=== PATIENT | female | born 1980 | race Caucasian/White ===

== ENCOUNTER 2017-12-11 22:58 | Inpatient (IN) | payer OTHER ==
[~2017-12-11] VITALS: Ht 162.6 cm; Wt 68.0 kg
[2017-12-11 22:58] VITALS: BP_SYST 85
--- NOTE | 2017-12-11 22:58 | NUR ---
Patient to ER bed 4 to gown for evaluation. Side rails up. Report given to MEL MORELOS.
--- NOTE | 2017-12-11 22:59 | NUR ---
Note [place] in EDM - 12/12/17 at 1049 by SDEDEJ Patient AAOx3, normally ambulatory. Paramedics state patient had "2 episdoes of syncope" earlier this evening with C section that occurred approximately 1 week ago. BP at triage reassessed. Patient denies injury to head, neck, and back. Patient states she "cannot remember how long she lost consciousness". Patient denies any other complaints.
--- NOTE | 2017-12-11 22:59 | NUR ---
Patient AAOx3, normally ambulatory. Paramedics state patient had "2 episodes of syncope" earlier this evening with C section that occurred approximately 1 week ago. BP at triage reassessed. Patient denies injury to head, neck, and back. Patient states she "cannot remember how long she lost consciousness". Patient denies any other complaints.
--- NOTE | 2017-12-11 22:59 | NUR ---
ER Dr. Garrison at bedside examining patient.
--- NOTE | 2017-12-11 23:00 | NUR ---
# 18 gauge angiocath placed to right AC. Use of asceptic technique. Opsite placed over site. Blood return noted. Blood for lab drawn from site. Flushed with 10 cc of normal saline. No evidence of infiltration noted. Patient tolerated well.
[2017-12-11] MEDS ORDERED: NACL 0.9% 1,000 ML IV SCH (23:03)
[2017-12-11 23:29] LABS: BASOPHILS # (AUTO) 0.1 K/uL (0.0-0.2); BASOPHILS % (AUTO) 0.4 % (0.0-2.0); EOSINOPHILS # (AUTO) 0.2 K/uL (0.0-0.4); LYMPHOCYTES # (AUTO) 2.5 K/uL (1.0-5.5); LYMPHOCYTES % (AUTO) 13.8 % (20.5-51.5); MEAN CORPUSCULAR HEMOGLOBIN 23 pg (27-31); MEAN CORPUSCULAR HGB CONC 31 % (32-36); MEAN CORPUSCULAR VOLUME 76 fL (79.0-98.0); MONOCYTES # (AUTO) 1.3 K/uL (0.0-1.0); MONOCYTES % (AUTO) 7.3 % (1.7-9.3); NEUTROPHILS # (AUTO) 14.1 K/uL (1.8-7.7); NEUTROPHILS % (AUTO) 77.5 % (40.0-70.0); PLATELET COUNT (AUTO) 281 K/uL (130-430); RED BLOOD CELL COUNT(AUTO) 2.06 MIL/uL (4.2-6.2); RED CELL DISTRIBUTION WIDTH 18.7 % (9.0-15.0); WHITE BLOOD COUNT (AUTO) 18.2 K/uL (4.8-10.8)
[2017-12-11 23:31] LABS: HEMATOCRIT 15.6 % (36-48); HEMOGLOBIN 4.8 g/dL (12.0-16.0)
[2017-12-11 23:33] LABS: CREATININE 0.83 mg/dL (0.55-1.30); POTASSIUM 3.9 mmol/L (3.5-5.1)
[2017-12-11 23:36] LABS: INR 1.2 (0.8-1.2); PROTHROMBIN TIME 12.1 SECS (9.5-12.5)
[2017-12-11 23:38] LABS: ALBUMIN 2.2 g/dL (3.4-4.8); TOTAL BILIRUBIN 0.3 mg/dL (0.0-1.0)
[2017-12-12] VITALS (16 sets, daily range): BP systolic 86–118
[2017-12-12] MEDS ORDERED: DIPHENHYDRAMINE INJ 50 MG/ML VIAL IVP ONE (00:15)
[2017-12-12] MEDS ORDERED: NACL 0.9% 500 ML IV ONE (00:15)
[2017-12-12] MEDS ORDERED: ACETAMINOPHEN 325 MG TABLET PO ONE (00:15)
[2017-12-12] MEDS ORDERED: IBUPROFEN 800 MG TABLET PO PRN (00:15)
--- NOTE | 2017-12-12 00:20 | NUR ---
Blood from patient is also noted to center of the patient's bedsheet. ER MD was notified; no changes to current orders at this time.
--- NOTE | 2017-12-12 00:20 | NUR ---
Note [place] in EDM - 12/12/17 at 1056 by SDEDEJ Blood also noted to center [facility] for [facility]orney. GAURAV MAJOR notified, no changes to current orders at this time.
--- NOTE | 2017-12-12 00:20 | NUR ---
1 towel at patient's bedside moderately saturated with dark red blood. ER MD notified.
--- NOTE | 2017-12-12 00:25 | NUR ---
ADMIT NOTE Received pt from ER to the floor with a diagnosis of POST- VAGINAL BLEEDING. Admission process initiated. patient oriented to pain management, safety and call light-teach back done.
--- NOTE | 2017-12-12 00:29 | NUR ---
Patient will be admitted to care of Dr. Stanley. Admitted to tele unit. Will go to room 125 B. Belongings list completed. Summary report printed. Report given to MEL Cardoso at bedside.
--- NOTE | 2017-12-12 00:45 | NUR ---
Admission note Patient c/o pain. Patient is having vaginal bleeding. Changed james and linen. Waiting on Blood too be available from pharmacy per MD orders.. Patient AAOx4. Horizontal incision on lower ABD per of twin girls on Dec 04 2017. Bed in low position. Family at bedside.
[2017-12-12] MEDS ORDERED: NORETHINDRONE ACETATE 5 MG TABLET PO ONE (01:00)
--- NOTE | 2017-12-12 01:02 | NUR ---
Saturated 2 chucks Patient vaginal bleeding, saturated 2 chucks. Changed linens.
--- NOTE | 2017-12-12 01:10 | NUR ---
Paged dr. Stanley
--- NOTE | 2017-12-12 01:17 | NUR ---
Blood transfusion Patient started blood transfusion at 0117 am. Refused PO medications Ibuprofen and Tylenol. IV Benadryl given with patient tolerating well.
--- NOTE | 2017-12-12 01:20 | NUR ---
ARRIVAL TO ICU PT ARRIVED TO ICU ROOM 7. FAMILY AT BEDSIDE. PT IS ACTIVELY BLEEDING. LOWER ABDOMINAL PAIN. DR. MALONE IS PRESENT. 1ST BLOOD TRANSFUSION IS ONGOING, OPENED WIDE PER DR MALONE. NEW IV ACCESS IS STARTED IN LEFT FOREARM 20G, IN FIRST ATTEMPT, TOLERATED WELL.
[2017-12-12] MEDS ORDERED: LR 1,000 ML IV SCH (01:30)
[2017-12-12] MEDS ORDERED: OXYTOCIN/NORMAL SALINE 1,000 ML IV SCH (01:30)
--- NOTE | 2017-12-12 01:30 | NUR ---
Dr. Stanley Charge nurse Jimi spoke with dr Stanley to transfer to ICU reason active Bleed.
[2017-12-12] MEDS ORDERED: METHYLERGONOVINE MALEATE 0.2 MG/ML AMP ONE (01:39)
[2017-12-12] MEDS ORDERED: OXYTOCIN IV ONE (01:39)
[2017-12-12] MEDS ORDERED: SODIUM CHLORIDE IV ONE (01:39)
--- NOTE | 2017-12-12 01:42 | NUR ---
PELVIC EXAM PELVIC EXAM PERFORMED BY DR MALONE.
--- NOTE | 2017-12-12 01:43 | NUR ---
Transfer to ICU Patient transffered to ICE report given to Hai LEAL Addendum: 12/12/17 at 0355 by Theresa Loera RN Transferred to ICU
--- NOTE | 2017-12-12 01:45 | NUR ---
SYLVESTER CATHETER SYLVESTER CATHETER INSERTED 16F BY DR MALONE.
--- NOTE | 2017-12-12 02:10 | NUR ---
1ST UNIT PRBC COMPLETION 1ST UNIT COMPLETED OF 3. PT IS STABLE. NO SIGNS OF REACTION. WILL PROCEED TO NEXT UNIT.
[2017-12-12] MEDS ORDERED: HYDROcodone/ACETAMIN 5-325 MG TAB (NORCO/ VICODIN) PO PRN (02:15)
[2017-12-12] MEDS ORDERED: ACETAMINOPHEN 325 MG TABLET ONE (02:28)
[2017-12-12] MEDS ORDERED: NACL 0.9% 1,000 ML IV SCH (02:34)
[2017-12-12] MEDS ORDERED: PIPERACILLIN/TAZOBACTAM 3.375 GM/VIAL (ZOSYN) IV ONE (02:44)
[2017-12-12] MEDS ORDERED: PIPERACILLIN/TAZO 3.375/DEX-IS 50 ML IV ONE (03:00)
--- NOTE | 2017-12-12 03:10 | NUR ---
2ND UNIT PRBC COMPLETION COMPLETED 2ND OF 3 UNITS PRBC. PT STABLE. NO APPARENT REACTION NOTED.
[2017-12-12 03:37] LABS: HEMATOCRIT 18.6 % (36-48); HEMOGLOBIN 5.9 g/dL (12.0-16.0)
[2017-12-12 03:40] LABS: INR 1.4 (0.8-1.2); PROTHROMBIN TIME 14.4 SECS (9.5-12.5)
--- NOTE | 2017-12-12 04:20 | NUR ---
3RD UNIT PRBC COMPLETED. 3RD UNIT OF 3 COMPLETED TRANSFUSION. 4 UNITS AVAILABLE ON HOLD. PT REMAINS STABLE. NO APPARENT REACTIONS.
[2017-12-12] MEDS ORDERED: IOHEXOL 350 mgI/mL, 150 ML INFUS..BTL IV ONE (05:07)
[2017-12-12] MEDS ORDERED: PROPOFOL DRIP 0 ML IV ONE (05:26)
--- NOTE | 2017-12-12 06:13 | NUR ---
paged paged for Dr Florian, dialed . s/w Quit[place]. as per Dr Holcomb's request.
[2017-12-12 06:18] LABS: BASOPHILS # (AUTO) 0.1 K/uL (0.0-0.2); BASOPHILS % (AUTO) 1.1 % (0.0-2.0); EOSINOPHILS # (AUTO) 0.1 K/uL (0.0-0.4); EOSINOPHILS % (AUTO) 0.6 % (0.0-4.0); LYMPHOCYTES # (AUTO) 1.2 K/uL (1.0-5.5); LYMPHOCYTES % (AUTO) 9.6 % (20.5-51.5); MEAN CORPUSCULAR HEMOGLOBIN 27 pg (27-31); MEAN CORPUSCULAR HGB CONC 32 % (32-36); MEAN CORPUSCULAR VOLUME 84 fL (79.0-98.0); MONOCYTES # (AUTO) 0.1 K/uL (0.0-1.0); MONOCYTES % (AUTO) 0.9 % (1.7-9.3); NEUTROPHILS % (AUTO) 87.8 % (40.0-70.0); PLATELET COUNT (AUTO) 141 K/uL (130-430); RED BLOOD CELL COUNT(AUTO) 2.36 MIL/uL (4.2-6.2); RED CELL DISTRIBUTION WIDTH 17.6 % (9.0-15.0); WHITE BLOOD COUNT (AUTO) 12.5 K/uL (4.8-10.8)
[2017-12-12 06:20] LABS: HEMATOCRIT 19.9 % (36-48); HEMOGLOBIN 6.4 g/dL (12.0-16.0)
--- NOTE | 2017-12-12 06:34 | NUR ---
Hematology Consultation Reason for consultation: Bleeding Was consult called: Yes Person who was notified: Dr Holcomb spoke with Dr Florian Consulting Physician: Dr Florian Mapping Editor Specialty: Hematology Mapping Editor Ordered By: Dr Holcomb
--- NOTE | 2017-12-12 06:50 | NUR ---
paged paged for Dr Stanley, dialed . s/w Jane. as per Dr Holcomb's request.
--- NOTE | 2017-12-12 06:50 | NUR ---
TALKED TO REGARDING STAT CONSULTATION, GAVE ME ORDERS FOR TRANEXAMIC ACID 5 GM IV TO BE GIVEN NOW. ORDERS GIVEN TO PHARMACY.
--- NOTE | 2017-12-12 06:59 | NUR ---
paged paged for Dr Weber, dialed . s/w Quita. as per Dr Holcomb's request.
--- NOTE | 2017-12-12 07:10 | NUR ---
Surgery Consultation Paged Reason for consultation: Central Line Was consult called: Yes Person who was notified: [place] Consulting Physician: Dr Weber Security Ambassador Specialty: Molding Associate Ordered By: Dr Holcomb
[2017-12-12] MEDS ORDERED: TRANEXAMIC ACID 1,000 MG/10 ML VIAL IV ONE (07:15)
[2017-12-12] MEDS ORDERED: TRANEXAMIC ACID 1,000 MG/10 ML VIAL IV SCH (07:15)
--- NOTE | 2017-12-12 07:15 | NUR ---
D&C ALERTED TO DR MALONE FOR PT'S FAMILY REFUSAL FOR D&C.
--- NOTE | 2017-12-12 07:30 | NUR ---
CLOSING NOTE PT ENDORSED TO ONCOMING DAYSHIFT RN. 4TH UNIT OF BLOOD CURRENTLY TRANSFUSING. CARE TO RESUME THROUGH TO NEXT SHIFT.
--- NOTE | 2017-12-12 07:30 | NUR ---
VISIT: AT BEDSIDE FOR ASSESSMENT OF PT, NEW ORDERS GIVEN, WILL CONT' WITH PLAN OF CARE.
--- NOTE | 2017-12-12 08:00 | NUR ---
CENTRAL LINE: AT BEDSIDE FOR INSERTION OF CENTRAL LINE, TRIPLE LUMEN INSERTED TO RIGHT FEMORAL, USING ASEPTIC TECHNIQUE, TOLERATED WELL, NO C/O PAIN OR DISCOMFORT, REMAINS AT BEDSIDE, WILL CONT' TO MONITOR AND ASSESS.
--- NOTE | 2017-12-12 08:00 | NUR ---
ASSUMPTION OF CARE: RECEIVED PT A/A/OX4, DX:RISK FOR FLUID VOLUME DEFICIT, R/T ACTIVE VAGINAL BLEEDING, H/H=5.9/ 18.6, CURRENTLY RECEIVED 4 UNITS PRBC'S, VS WNL, NO S/S OF IMMEDIATE DISTRESS, AFEBRILE, BREATH SOUNDS ARE CLEAR, BREATHING UNLABORED, PULSES PALPABLE, COLOR IS GOOD, SKIN INTACT, WARM, DRY TO TOUCH, IV SITE INTACT, PATENT, NO REDNESS OR SWELLING, AT BEDSIDE, ORIENTED TO UNIT, CALL LIGHT PLACED WITHIN REACH, WILL CONT' TO MONITOR AND ASSESS.
[2017-12-12 08:09] LABS: ALBUMIN 1.7 g/dL (3.4-4.8); CREATININE 0.56 mg/dL (0.55-1.30); POTASSIUM 4.2 mmol/L (3.5-5.1); TOTAL BILIRUBIN 0.3 mg/dL (0.0-1.0)
[2017-12-12 08:14] LABS: CALCIUM 6.9 mg/dL (8.4-11.0)
[2017-12-12] MEDS ORDERED: NS IV ONE (08:30)
[2017-12-12] MEDS ORDERED: TRANEXAMIC ACID IV ONE (08:30)
--- NOTE | 2017-12-12 08:30 | NUR ---
TRANSFUSION: 5TH UNIT PRBC'S STARTED, TOLERATING WELL, NO S/S OF ADVERSE REACTION, IV SITE, INTACT, PATENT, NO REDNESS OR SWELLING, WILL CONT' TO MONITOR AND ASSESS.
--- NOTE | 2017-12-12 08:40 | NUR ---
FFP: 1ST UNIT OF FFP STARTED, PER ORDERED BY Mark, PT REMAINS AFEBRILE, NO S/S OF ADVERSE REACTION, CALL LIGHT WITHIN REACH, REMAINS AT BEDSIDE, WILL CONT' TO MONITOR CLOSELY.
[2017-12-12] MEDS ORDERED: metroNIDAZOLE 500 mg/NS 100 ML IV SCH (08:45)
--- NOTE | 2017-12-12 08:53 | NUR ---
DISCHARGE PLANNING DC order for hospital transfer. Called [facility] [phone] spoke with Madeline nurse supervisor glycerin conduit installer who transferred call to Idalia laird L&Jesus who transferred call to inpatient admissions, spoke with Blanquita admian MD to call [phone] ICU nurse will give number to MD to call. Faxed requested EMR [phone] noted to call ICU directly with bed assignment for patient transfer. Called contracted ambulance [facility] [phone] spoke with Mary LOMAS transport on will call to [facility] located [address] [address]. Ordered Radiology CD. Transportation packet in nurses station. Addendum: 12/12/17 at 916 by Gena SAN Faxed requested EMR to [phone] Attn: Rozina at [facility] Addendum: 12/12/17 at 0924 by Gena SAN Called and spoke with Blanquita in admissions at [facility] who confirmed to re-fax to [phone] currently previously given fax number [phone] not working. Addendum: 12/12/17 at 0946 by Gena SAN spoke with Blanquita in admitting at [facility] confirmed fax was received and will forward to Rozina.
[2017-12-12] MEDS ORDERED: CALCIUM GLUCONATE 1 GM in NS 100 ML IV ONE (09:00)
[2017-12-12] MEDS ORDERED: CEFEPIME 1 GM in D5W 50 ML IV SCH (09:00)
[2017-12-12] MEDS ORDERED: NORETHINDRONE ACETATE 5 MG TABLET PO SCH (09:00)
--- NOTE | 2017-12-12 09:00 | NUR ---
RESIDENCE LIFE DIRECTOR: MORNING MEDS GIVEN, PER ORDERED BY Mark, TOLERATED WELL, WILL CONT' TO MONITOR AND ASSESS.
--- NOTE | 2017-12-12 09:15 | NUR ---
VISIT: AT BEDSIDE FOR ASSESSMENT OF PT, NEW ORDERS GIVEN, WILL CONT' WITH PLAN OF CARE.
--- NOTE | 2017-12-12 09:30 | NUR ---
DISCONTINUATION OF MEDS: NORETHINDRONE 2 TABS PO, DISCONTINUED BY , UNABLE TO ENTER INTO ORDERS AT THIS TIME, WILL CONT' WITH PLAN OF CARE.
--- NOTE | 2017-12-12 09:40 | NUR ---
VISIT: AT BEDSIDE FOR ASSESSMENT OF PT, NEW ORDERS GIVEN, WILL CONT' WITH PLAN OF CARE.
--- NOTE | 2017-12-12 09:49 | NUR ---
DISCHARGE PLANNING Called contracted ambulance [facility] [phone] spoke with Mary cunningham [facility] Transport on will call to [facility] located [address] [address]. Ordered Radiology CD. Transportation packet in nurses station. [facility] admission was given ICU direct number to call with bed assignment for patient transfer. Accepting MD: Dr Cordell Maldonado confirmed by Dr Perez.
[2017-12-12] MEDS ORDERED: VANCOMYCIN HCL 750 MG in NS 250 ML IV SCH (10:00)
[2017-12-12] MEDS ORDERED: METHYLERGONOVINE MALEATE 0.2 MG/ML AMP IM SCH (10:00)
--- NOTE | 2017-12-12 10:00 | NUR ---
TRANSFUSION: 6TH UNIT PRBC'S STARTED, TOLERATING WELL, NO S/S OF ADVERSE REACTION, IV SITE, INTACT, PATENT, NO REDNESS OR SWELLING, CALL LIGHT PLACED WITHIN REACH, WILL CONT' TO MONITOR AND ASSESS.
[2017-12-12] MEDS ORDERED: D5NS 1,000 ML IV SCH (10:15)
--- NOTE | 2017-12-12 10:40 | NUR ---
TRANSFUSION: 1ST UNIT PLATELET STARTED, TOLERATING WELL, NO S/S OF ADVERSE REACTION, CALL LIGHT WITHIN REACH, WILL CONT' TO MONITOR AND ASSESS.
--- NOTE | 2017-12-12 10:50 | NUR ---
FFP: 2ND UNIT OF FFP STARTED, PER ORDERED BY Mark, PT REMAINS AFEBRILE, NO S/S OF ADVERSE REACTION, CALL LIGHT WITHIN REACH, WILL CONT' TO MONITOR CLOSELY.
--- NOTE | 2017-12-12 11:30 | NUR ---
TRANSFUSION: 2ND UNIT OF CRYOPRECIPITATE GIVEN,TOLERATING WELL, WILL CONT' TO MONITOR AND ASSESS.
--- NOTE | 2017-12-12 11:55 | NUR ---
FFP: 3RD UNIT OF FFP STARTED, PER ORDERED BY Mark, PT IS AFEBRILE, NO S/S OF ADVERSE REACTION, VS WNL, CALL LIGHT WITHIN REACH, WILL CONT' TO MONITOR AND ASSESS.
[2017-12-12] MEDS ORDERED: PIPERACILLIN/TAZO 3.375/DEX-IS 50 ML IV SCH (12:00)
--- NOTE | 2017-12-12 12:20 | NUR ---
TRANSFUSION: 1ST UNIT OF CRYOPRECIPITATE GIVEN, NO S/S OF ADVERSE REACTION, TOLERATED WELL, WILL CONT' TO MONITOR AND ASSESS.
[2017-12-12 13:22] LABS: BASOPHILS % (AUTO) 0.1 % (0.0-2.0); EOSINOPHILS % (AUTO) 0.2 % (0.0-4.0); LYMPHOCYTES # (AUTO) 1.1 K/uL (1.0-5.5); LYMPHOCYTES % (AUTO) 11.3 % (20.5-51.5); MEAN CORPUSCULAR HEMOGLOBIN 29 pg (27-31); MEAN CORPUSCULAR HGB CONC 34 % (32-36); MEAN CORPUSCULAR VOLUME 84 fL (79.0-98.0); MONOCYTES # (AUTO) 0.7 K/uL (0.0-1.0); MONOCYTES % (AUTO) 7.6 % (1.7-9.3); NEUTROPHILS # (AUTO) 7.7 K/uL (1.8-7.7); NEUTROPHILS % (AUTO) 80.8 % (40.0-70.0); PLATELET COUNT (AUTO) 88 K/uL (130-430); WHITE BLOOD COUNT (AUTO) 9.5 K/uL (4.8-10.8)
[2017-12-12 13:28] LABS: RED BLOOD CELL COUNT(AUTO) 1.96 MIL/uL (4.2-6.2)
[2017-12-12 13:29] LABS: HEMOGLOBIN 5.6 g/dL (12.0-16.0)
[2017-12-12 13:30] LABS: HEMATOCRIT 16.5 % (36-48)
[2017-12-12 13:34] LABS: CREATININE 0.65 mg/dL (0.55-1.30); POTASSIUM 3.6 mmol/L (3.5-5.1)
[2017-12-12 13:35] LABS: INR 1.1 (0.8-1.2); PROTHROMBIN TIME 11.6 SECS (9.5-12.5)
[2017-12-12 13:39] LABS: ALBUMIN 2.2 g/dL (3.4-4.8); BILIRUBIN,DIRECT 0.1 mg/dL (0.0-0.3); TOTAL BILIRUBIN 0.3 mg/dL (0.0-1.0)
--- NOTE | 2017-12-12 13:40 | NUR ---
REPORTED REPEAT H/H TO DR GUERRA AND ORDERS RECEIVED.
--- NOTE | 2017-12-12 14:10 | NUR ---
TRANSFUSION: 7TH UNIT PRBC'S STARTED, TOLERATING WELL, NO S/S OF ADVERSE REACTION, IV SITE, INTACT, PATENT, NO REDNESS OR SWELLING, CALL LIGHT PLACED WITHIN REACH, WILL CONT' TO MONITOR AND ASSESS.
--- NOTE | 2017-12-12 14:30 | NUR ---
TRANSFUSION: 2ND UNIT PLATELET STARTED, TOLERATING WELL, NO S/S OF ADVERSE REACTION, CALL LIGHT WITHIN REACH, WILL CONT' TO MONITOR AND ASSESS.
--- NOTE | 2017-12-12 14:45 | NUR ---
ENDORSEMENT: REPORT GIVEN TO ICU NURSE (RENNY LEAL), CCT AT BEDSIDE FOR TRANSPORT OF PT TO [facility], WILL ACCOMPANY IN AMBULANCE, PER AGREED BY EMT'S, PT LEFT WITH 1 UNIT PRBC'S AND FFP INFUSING, WILL CONT' WITH POC.
--- NOTE | 2017-12-12 15:00 | NUR ---
FFP: 4TH UNIT OF FFP STARTED, PER ORDERED BY Mark, PT BEING TRANSPORTED TO [facility] FOR HIGHER LEVEL OF CARE, VIA CCT, PT IS AFEBRILE, NO S/S OF ADVERSE REACTION, VS WNL, CALL LIGHT WITHIN REACH, AT BEDSIDE, REQUEST TO RIDE IN AMBULANCE WITH PT, WILL ACCOMPANY PT TO [facility].
--- NOTE | 2017-12-12 15:00 | NUR ---
FFP: 7TH UNIT OF PRBC'S TRANSFUSING, PER ORDERED BY Mark, PT BEING TRANSPORTED TO [facility] FOR HIGHER LEVEL OF CARE, VIA CCT, PT IS AFEBRILE, NO S/S OF ADVERSE REACTION, VS WNL, WILL CONT' WITH POC.
--- NOTE | 2017-12-12 15:05 | NUR ---
[facility] HERE TO TAKE PT TO [facility]. PT TRANSFERRED VIA [facility]BULANCE WITH AN RN PRESENT. REPORT WAS CALLED BY GABRIELLE RUEDA RN TO [phone]. PT TRANSFUSED WITH 1 UNIT OF PACKED CELLS WHICH COMPLETED INFUSING IN THE ICU HERE. PT TRANSFERRED WITH A SECOND UNIT OF PACKED CELLS STARTED JUST PRIOR TO LEAVING OUR ICU WELL A UNIT OF FFP AND THE TRANSPORTING RN WILL ASSUME THE TRANSFUSION MONITORING. NO REACTION NOTED TO ANY BLOOD PRODUCTS GIVEN TODAY. PT PASSING A FEW SMALL RED BLOOD CLOTS VAGINALLY. FAMILY PROVIDED HYGIENE CARE AND STATED THAT THEY THREW SOME OF THE PADS AWAY. VSS, ST ON MONITOR RATE 104, SBP 110 AND RR 26/MIN WITH SATS 100% ON ROOM AIR 02. GOOD URINE OUTPUT OF CLEAR YELLOW URINE. PTS FAMILY FOLLOWED PT TO AMBULANCE. DR MALONE, DR. CARMONA AND DR. GUERRA AWARE OF TRANSFER.
== END 2017-12-12 15:05 | disposition short-term general hospital (02) | DRG 774 ==
LOC: SED 22:58 → SMU 12-12 00:01 → SIC 12-12 00:29
PROVIDERS: ADMIT Obstetrics & Gynecology; ATTEND Obstetrics & Gynecology
PROC: 06HM33Z Insertion of Infusion Device into Right Femoral Vein, Percutaneous Approach (ICD-10-PCS; principal; 2017-12-12)
PROC: 30233N1 Transfusion of Nonautologous Red Blood Cells into Peripheral Vein, Percutaneous Approach (ICD-10-PCS; 2017-12-12)
PROC: 30233L1 Transfusion of Nonautologous Fresh Plasma into Peripheral Vein, Percutaneous Approach (ICD-10-PCS; 2017-12-12)
PROC: 30233R1 Transfusion of Nonautologous Platelets into Peripheral Vein, Percutaneous Approach (ICD-10-PCS; 2017-12-12)
PROC: 30233M1 Transfusion of Nonautologous Plasma Cryoprecipitate into Peripheral Vein, Percutaneous Approach (ICD-10-PCS; 2017-12-12)
PROC: 30233K1 Transfusion of Nonautologous Frozen Plasma into Peripheral Vein, Percutaneous Approach (ICD-10-PCS; 2017-12-12)
DX: O72.1 Other immediate postpartum hemorrhage (principal); D65 Disseminated intravascular coagulation [defibrination syndrome]; D69.6 Thrombocytopenia, unspecified; I95.9 Hypotension, unspecified; O99.13 Other diseases of the blood and blood-forming organs and certain disorders involving the immune mechanism complicating the puerperium; D25.9 Leiomyoma of uterus, unspecified; D64.9 Anemia, unspecified; D72.829 Elevated white blood cell count, unspecified; O99.89 Other specified diseases and conditions complicating pregnancy, childbirth and the puerperium; M06.9 Rheumatoid arthritis, unspecified; O90.81 Anemia of the puerperium; Z79.899 Other long term (current) drug therapy
CPT/HCPCS: 36415; 76856-TC; 80048; 80053; 80076; 85018-TC; 85025; 85379; 85384-TC; 85610-TC; 85730-TC; 86886; 86900; 86901; 86920; 87081; 96360; 99285; C1751; J0610; J0692; J1200; J2210; J2543; J2590; J2704; J3370; J3490; J7030; J7040; J7042; J7050; J7060; J7120; P9012; P9021; P9034; P9059; Q9967